=== PATIENT | male | born 1995 | race Caucasian/White ===

== ENCOUNTER 2017-08-13 10:51 | Emergency (ER) | payer MEDICAID ==
--- NOTE | 2017-08-13 11:29 | ED PDOC ---
HPI: CCC, URI, Sore Throat Time Seen by Provider: 08/13/17 11:12 Chief Complaint (Nursing): Cough, Cold, Congestion Chief Complaint (Provider): cough History Per: Patient, Family Additional Complaint(s): 21-year-old male presents to emergency department for evaluation of dry cough that started yesterday. No fever, chills, nausea, vomiting, chest pain or shortness of breath. Past Medical History Reviewed: Historical Data, Nursing Documentation, Vital Signs Vital Signs: Last Vital Signs Temp 98.0 F 08/13/17 11:29 Pulse 88 08/13/17 11:29 Resp 18 08/13/17 11:29 BP 121/75 08/13/17 11:29 Pulse Ox 97 08/13/17 11:29 - Medical History Other PMH: autism - Surgical History Surgical History: No Surg Hx - Family History Family History: States: No Known Family Hx - Living Arrangements Living Arrangements: With Family - Social History Current smoker - smoking cessation education provided: No Alcohol: None Drugs: Denies - Home Medications Home Medications: Ambulatory Orders Medication Instructions Recorded Albuterol 0.5% [Albuterol 0.5% 3 ml IH Q4 #20 neb 06/07/15 Inhal Nirali (2.5 mg/0.5 ml) UD] Dextromethorphan HBr [Cough 15 mg PO BID #30 capsule 06/07/15 Control] Guaifenesin [Mucinex] 1,200 mg PO ONCE #14 ter 06/07/15 Mask, Face [Nebulizer Aerosol Mask 1 dev XX PRN PRN #1 dev 06/07/15 Adult] Non-Formulary 1 ea XX DAILY #1 ea 06/07/15 Benzonatate 200 mg PO TID PRN #20 capsule 08/13/17 - Allergies Allergies/Adverse Reactions: Allergies Allergy/AdvReac Type Severity Reaction Status Date / Time No Known Allergies Allergy Verified 08/13/17 11:28 Review of Systems ROS Statement: Except As Marked, All Systems Reviewed And Found Negative Constitutional: Negative for: Fever, Chills ENT: Negative for: Nose Congestion, Throat Pain Cardiovascular: Negative for: Chest Pain Respiratory: Positive for: Cough. Negative for: Shortness of Breath, Hemoptysis , SOB with Exertion, Pleuritic Pain, Sputum, Wheezing Gastrointestinal: Negative for: Nausea, Vomiting Neurological: Negative for: Headache, Dizziness Physical Exam - Reviewed Nursing Documentation Reviewed: Yes Vital Signs Reviewed: Yes - Physical Exam Appears: Positive for: Well, Non-toxic, No Acute Distress Skin: Negative for: Rash Eye Exam: Positive for: Normal appearance ENT: Positive for: Normal ENT Inspection Cardiovascular/Chest: Positive for: Regular Rate, Rhythm Respiratory: Positive for: Normal Breath Sounds Neurologic/Psych: Positive for: Alert, Oriented - ECG O2 Sat by Pulse Oximetry: 97 Pulse Ox Interpretation: Normal Medical Decision Making Medical Decision Makin21 year old with dry cough Vital signs stable. Plan: Rx tessalon perles given. Advised PMD follow up in 2-3 days. Disposition - Clinical Impression Clinical Impression: Cough - Patient ED Disposition Is Patient to be Admitted: No Counseled Patient/Family Regarding: Studies Performed, Diagnosis, Need For Followup, Rx Given - Disposition Referrals: Clint Carrasco MD [Family Provider] - Disposition: Routine/Home Disposition Time: 13:00 Condition: STABLE Additional Instructions: Take prescription meds as directed. Follow-up with primary doctor in 2-3 days. Prescriptions: Benzonatate 200 mg PO TID PRN #20 capsule PRN Reason: Cough Instructions: Cough in Adults Forms: [employer] (Maori) Print Language: CHINESE
[2017-08-13 11:33] VITALS: PULSE 88; RESP 18; TEMP 98; O2SAT 97
[2017-08-13 11:34] VITALS: BP 121/75
== END 2017-08-13 13:28 | disposition home or self-care (01) ==
LOC: H.ER 10:51
DX: R05 Cough (principal); F84.0 Autistic disorder

== ENCOUNTER 2018-03-01 22:21 | Emergency (ER) | payer MEDICAID ==
[2018-03-01] MEDS ORDERED: Albuterol 0.083% Inhal Sol (2.5 mg/3 mL) UD ONE (22:52)
[2018-03-01] MEDS ORDERED: Albuterol 0.083% Inhal Sol (2.5 mg/3 mL) UD INH ONE ×2 (22:54→23:30)
[2018-03-01 22:57] VITALS: RESP 18
--- NOTE | 2018-03-01 23:15 | ED PDOC ---
HPI: Asthma Time Seen by Provider: 03/01/18 22:45 Chief Complaint (Nursing): Shortness Of Breath Additional Complaint(s): Pt seen and examined at bedside with attending. 22M on autistic spectrum p/w acute onset difficulty breathing that started this morning. Mother denies any associated fevers, chills, cough, sick contacts, denies pets in household and denies any prior history of asthma diagnosis. PMD: Susan Lyle Past Medical History Vital Signs: Last Vital Signs Temp 36.6 C 03/01/18 22:30 Pulse 90 03/01/18 22:30 Resp 18 03/01/18 22:49 BP 141/85 03/01/18 22:30 Pulse Ox 99 03/01/18 22:49 - Medical History Other PMH: Autism Spectrum - Family History Family History: States: Unknown Family Hx - Home Medications Home Medications: Ambulatory Orders Medication Instructions Recorded Albuterol 0.5% [Albuterol 0.5% 3 ml IH Q4 #20 neb 06/07/15 Inhal Nirali (2.5 mg/0.5 ml) UD] Dextromethorphan HBr [Cough 15 mg PO BID #30 capsule 06/07/15 Control] Guaifenesin [Mucinex] 1,200 mg PO ONCE #14 ter 06/07/15 Mask, Face [Nebulizer Aerosol Mask 1 dev XX PRN PRN #1 dev 06/07/15 Adult] Non-Formulary 1 ea XX DAILY #1 ea 06/07/15 Benzonatate 200 mg PO TID PRN #20 capsule 08/13/17 Albuterol HFA [Ventolin HFA 90 2 puff IH [id number] PRN #1 dev 03/01/18 mcg/actuation (8 g)] - Allergies Allergies/Adverse Reactions: Allergies Allergy/AdvReac Type Severity Reaction Status Date / Time No Known Allergies Allergy Verified 08/13/17 11:28 Review of Systems ROS Statement: Except As Marked, All Systems Reviewed And Found Negative Respiratory: Positive for: Shortness of Breath, SOB with Exertion, Wheezing Physical Exam - Reviewed Vital Signs Reviewed: Yes - Physical Exam Appears: Positive for: Non-toxic Head Exam: Positive for: ATRAUMATIC Skin: Positive for: Normal Color, Warm, Dry Eye Exam: Positive for: Normal appearance, EOMI ENT: Positive for: Pharynx Is (clear), TM Is/Are (clear) Neck: Positive for: Supple Cardiovascular/Chest: Positive for: Regular Rate, Rhythm Respiratory: Positive for: Wheezing (bilaterally throughout). Negative for: Crackles, Rales Gastrointestinal/Abdominal: Positive for: Normal Exam, Bowel Sounds, Soft. Negative for: Tenderness Extremity: Positive for: Normal ROM. Negative for: Calf Tenderness Neurologic/Psych: Positive for: Alert, Oriented - ECG O2 Sat by Pulse Oximetry: 99 Nebulizer Treatments/Peak Flow - Duonebs Number of Bronchodilator Doses given?: 1 Medical Decision Making Medical Decision Making: Suspect bronchospasm secondary to temperature/humidity/viral. - Albuterol x1 - CXR - Prednisone 60mg x1 2325 Re-evaluation wheezing in bilateral upper lobes but improved air movement. Pt reports symptomatic improvement - Albuterol #2 2355 Pt feels much better, clinically no longer wheezing. CXR no acute findings as interpreted by me Disposition - Clinical Impression Clinical Impression: Bronchospasm - Patient ED Disposition Is Patient to be Admitted: No Counseled Patient/Family Regarding: Diagnosis, Need For Followup, Rx Given - Disposition Referrals: Niyah Mazariegos MD [Family Provider] - (3-5 days) Disposition: Routine/Home Disposition Time: 23:59 Condition: IMPROVED Prescriptions: Albuterol HFA [Ventolin HFA 90 mcg/actuation (8 g)] 2 puff IH [id number] PRN #1 dev PRN Reason: Shortness Of Breath Instructions: Asthma, Adult (DC), Avoiding Asthma Triggers, Humidifiers Forms: [employer] (Macedonian), [employer] (Citizen [place]) Print Language: CZECH
[2018-03-02 00:13] VITALS: BP 133/79; PULSE 86; TEMP 98.1; O2SAT 100
--- NOTE | 2018-03-02 08:03 | RAD ---
Date of service: 03/01/2018 HISTORY: SOB COMPARISON: No prior. TECHNIQUE: Chest PA and lateral FINDINGS: LUNGS: No active pulmonary disease. PLEURA: No significant pleural effusion identified. No pneumothorax apparent. CARDIOVASCULAR: No aortic atherosclerotic calcification present. Normal cardiac size. No pulmonary vascular congestion. OSSEOUS STRUCTURES: No significant abnormalities. VISUALIZED UPPER ABDOMEN: Normal. OTHER FINDINGS: None. IMPRESSION: No acute cardiopulmonary disease appreciated.
== END 2018-03-02 00:09 | disposition home or self-care (01) ==
LOC: H.ER 22:21
DX: J98.01 Acute bronchospasm (principal); F84.0 Autistic disorder; Z79.899 Other long term (current) drug therapy